=== PATIENT | female | born 1990 | race Caucasian/White ===

== ENCOUNTER 2018-06-10 19:23 | Emergency (ER) | payer OTHER ==
--- NOTE | 2018-06-10 21:05 | NUR ---
CALLED TO TRIAGE, NOT IN WAITING ROOM
--- NOTE | 2018-06-10 21:24 | NUR ---
PT LEFT WITHOUT BEING SEEN.
== END 2018-06-10 21:24 | disposition left against medical advice (07) ==
LOC: ER 19:27
DX: Z53.21 Procedure and treatment not carried out due to patient leaving prior to being seen by health care provider (principal)